=== PATIENT | female | born 1995 | race Caucasian/White ===

== ENCOUNTER 2020-12-08 20:57 | Emergency (ER) | payer BC, OTHER ==
[2020-12-08 21:42] LABS: Protime INR 1.12
[2020-12-08 21:43] LABS: Absolute Lymphocytes (CBC) 4.5 K/uL (0.7-4.9); Basophils % 0.7 % (0-1.3); Lymphocytes % 38.6 % (15.3-44.8); MPV 7.7 fL (7.6-11.3); RBC Red Blood Cell Count 5.37 M/uL (3.86-4.86)
[2020-12-08 21:43] LABS: Urine Blood Negative (Negative); Urine Glucose Negative (Negative); Urine Protein Negative (Negative)
[2020-12-08 22:00] LABS: ALT/SGPT 21 U/L (12-78); AST/SGOT 12 U/L (15-37); Albumin 4.2 g/dL (3.4-5.0); Alkaline Phosphatase 83 U/L (45-117); BUN Blood Urea Nitrogen 12 mg/dL (7-18); Bicarbonate 30 mmol/L (21-32); Bilirubin Direct 0.1 mg/dL (0-0.2); Bilirubin Total 0.4 mg/dL (0.2-1.0); Glucose Level 95 mg/dL (74-106); Magnesium 2.5 mg/dL (1.8-2.4); NT PRO-BNP 23 pg/mL (<125); Potassium 3.7 mmol/L (3.5-5.1); Sodium Level 142 mmol/L (136-145); Troponin (Emerg Dept Use Only) < 0.02 ng/mL (0.0-0.045)
--- NOTE | 2020-12-08 23:26 | EDPHYS ---
Physician Documentation [facility] Name: Leonora Esteban Age: 25 yrs Sex: Female : 1995 Arrival Date: 12/08/2020 Time: 21:01 Bed 6 Private MD: ED Physician Kin Lambert HPI: 12/08 21:58 This 25 yrs old Female presents to ER via Ambulatory with complaints of Chest jmm Pain, Weakness, Palpitations. 21:58 The patient or guardian reports chest pain that is located primarily in the substernal jmm area. The pain radiates to across chest. Associated signs and symptoms: Pertinent negatives: abdominal pain, shortness of breath. The chest pain is described as sharp. Duration: The patient or guardian reports multiple episodes, that are intermittent, that wax and wane. Modifying factors: The symptoms are alleviated by nothing. the symptoms are aggravated by nothing. The patient has not experienced similar symptoms in the past. 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 - Social history:: Smoking status: Patient denies any tobacco usage or history of. ROS: 21:58 Constitutional: Negative for fever, chills, and weight loss, Respiratory: Negative for jmm shortness of breath, cough, wheezing, and pleuritic chest pain. 21:58 Cardiovascular: Positive for chest pain. 21:58 All other systems are negative. Exam: 21:58 Constitutional: This is a well developed, well nourished patient who is awake, alert, jmm and in no acute distress. Head/Face: atraumatic. Eyes: EOMI, no conjunctival erythema appreciated ENT: Moist Mucus Membranes Neck: Trachea midline, Supple Chest/axilla: Normal chest wall appearance and motion. Cardiovascular: Regular rate and rhythm. No edema appreciated Respiratory: Normal respirations, no respiratory distress appreciated Abdomen/GI: Non distended, soft Back: Normal ROM Skin: General appearance color normal MS/ Extremity: Moves all extremities, no obvious deformities appreciated, no edema noted to the lower extremities Neuro: Awake and alert, normal gait Vital Signs: 21:08 BP 140 / 98; Pulse 91; Resp 18; Temp 98.2; Pulse Ox 99% on R/A; Weight 77.11 kg; Height em 5 ft. 6 in. (167.64 cm); Pain 7/10; 22:35 BP 115 / 84; Pulse 82; Resp 18; Pulse Ox 99% on R/A; ms4 23:26 BP 117 / 76; Pulse 86; Resp 18; Pulse Ox 100% on R/A; Pain 0/10; ms4 21:08 Body Mass Index 27.44 (77.11 kg, 167.64 cm) em MDM: 21:23 Patient medically screened. [facility] 23:24 Data reviewed: vital signs, nurses notes. Counseling: I had a detailed discussion with murali the patient and/or guardian regarding: the historical points, exam findings, and any diagnostic results supporting the discharge/admit diagnosis, radiology results, the need for outpatient follow up, to return to the emergency department if symptoms worsen or persist or if there are any questions or concerns that arise at home. ED course: HEART score = 1. Advised to follow up with pcp and otherwise given strict return precautions. Patient understood and agrees with the plan of care. . 12/08 21:26 Order name: Basic Metabolic Panel ms4 12/08 21: Order name: CBC with Diff; Complete Time: 21:45 ms4 12/08 21:26 Order name: LFT's; Complete Time: 22:01 ms4 12/08 21:26 Order name: Magnesium; Complete Time: 22:01 ms4 12/08 21:26 Order name: NT PRO-BNP; Complete Time: 22:01 ms4 12/08 21: Order name: PT-INR; Complete Time: 23:13 ms4 12/08 21: Order name: Troponin (emerg Dept Use Only); Complete Time: 22:01 ms4 12/08 21:26 Order name: XRAY Chest (1 view) ms4 12/08 21: Order name: Basic Metabolic Panel; Complete Time: 22:01 EDMS 12/08 21:43 Order name: Urine Dipstick-Ancillary; Complete Time: 21:45 EDMS 12/08 21:43 Order name: Urine --Ancillary (enter results) ms4 12/08 21:44 Order name: Urine --Ancillary; Complete Time: 22:13 EDMS 12/08 22:55 Order name: D-Dimer; Complete Time: 23:13 EDMS 12/08 21:26 Order name: EKG; Complete Time: 21:27 ms4 12/08 21:26 Order name: Cardiac monitoring; Complete Time: 21:26 ms4 12/08 21:26 Order name: EKG - Nurse/Tech; Complete Time: 21:26 ms4 12/08 21:26 Order name: IV Saline Lock; Complete Time: 21:26 ms4 12/08 21:26 Order name: Labs collected and sent; Complete Time: 21:26 ms4 12/08 21:26 Order name: O2 Per Protocol; Complete Time: 21:26 ms4 12/08 21:26 Order name: O2 Sat Monitoring; Complete Time: 21:26 ms4 12/08 21:29 Order name: Urine Dipstick-Ancillary (obtain specimen); Complete Time: 21:43 [facility] 12/08 21:29 Order name: Urine Test (obtain specimen); Complete Time: 21:43 [facility] Administered Medications: No medications were administered Disposition: 12/09 05:42 Co-signature as Attending Physician, Kin Lambert MD. [facility] Disposition Summary: 12/08/20 23:25 Discharge Ordered Location: Home [facility] Condition: Stable jm Diagnosis - Chest pain, unspecified jmm Followup: jm - With: Private Physician - When: 2 - 3 days - Reason: Recheck today's complaints, Continuance of care, Re-evaluation by your physician Followup: [facility] - With: Luis Elizondo MD - When: 2 - 3 days - Reason: Recheck today's complaints, Continuance of care, Re-evaluation by your physician Discharge Instructions: - Discharge Summary Sheet jm - Nonspecific Chest Pain, Adult jm Forms: - Medication Reconciliation Form [facility] - Thank You Letter [facility] - Antibiotic Education [facility] - Prescription Opioid Use [facility] Signatures: Dispatcher [employer] EDMS Chaim Sotomayor PA PA m Live Hay, RN RN Kin De Jesus MD MD 7 La Amado RN RN ms4 Corrections: (The following items were deleted from the chart) 12/08 21:10 Allergies: No Known Allergies; em em 21:10 Allergies: Bystolic; em em : 21:30 D-DIMER+COAG.LAB.HYUN ordered. EDMS EDMS
--- NOTE | 2020-12-08 23:26 | ER ---
Nurse's Notes [facility] Name: Leonora Esteban Age: 25 yrs Sex: Female : 1995 Arrival Date: 12/08/2020 Time: 21:01 Bed 6 Private MD: Diagnosis: Chest pain, unspecified Presentation: 12/08 21:08 Chief complaint: Patient states: chest pain that started a few days ago, but today was em worse, reports palpitations and pain under left ribs, reports nausea, hx of anxiety. Coronavirus screen: Vaccine status: Patient reports being unvaccinated. Ebola Screen: Patient negative for fever greater than or equal to 101.5 degrees Fahrenheit, and additional compatible Ebola Virus Disease symptoms Patient denies exposure to infectious person. Patient denies travel to an Ebola-affected area in the 21 days before illness onset. No symptoms or risks identified at this time. Initial Sepsis Screen: Does the patient meet any 2 criteria? No. Patient's initial sepsis screen is negative. Does the patient have a suspected source of infection? No. Patient's initial sepsis screen is negative. Risk Assessment: Do you want to hurt yourself or someone else? Patient reports no desire to harm self or others. Onset of symptoms was December 08, 2020. 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 - Social history:: Smoking status: Patient denies any tobacco usage or history of. Screenin:27 Abuse screen: Denies threats or abuse. Denies injuries from another. Nutritional ms4 screening: No deficits noted. Tuberculosis screening: No symptoms or risk factors identified. Fall Risk None identified. Assessment: 21:27 General: Appears in no apparent distress. Behavior is anxious. Pain: Complains of pain ms4 in chest Pain radiates to LUQ Quality of pain is described as sharp, Pain began 2-3 days ago. Neuro: No deficits noted. Cardiovascular: Reports chest pain, palpitations, Capillary refill < 3 seconds Chest pain. Respiratory: No deficits noted. Vital Signs: 21:08 BP 140 / 98; Pulse 91; Resp 18; Temp 98.2; Pulse Ox 99% on R/A; Weight 77.11 kg; Height em 5 ft. 6 in. (167.64 cm); Pain 7/10; 22:35 BP 115 / 84; Pulse 82; Resp 18; Pulse Ox 99% on R/A; ms4 23:26 BP 117 / 76; Pulse 86; Resp 18; Pulse Ox 100% on R/A; Pain 0/10; ms4 21:08 Body Mass Index 27.44 (77.11 kg, 167.64 cm) em ED Course: 21:01 Patient arrived in ED. cf2 21:03 Chaim Sotomayor PA is PHCP. jmm 21:03 Kin Lambert MD is Attending Physician. jmm 21:10 Triage completed. em 21:10 Arm band placed on. em 21:27 No provider procedures requiring assistance completed. Inserted saline lock: 20 gauge ms4 in left antecubital area, using aseptic technique. Blood collected. Patient maintains SpO2 saturation greater than 95% on room air. 21:30 PT-INR Sent. ms4 21:31 NT PRO-BNP Sent. ms4 21:31 Magnesium Sent. ms4 21:31 LFT's Sent. ms4 21:31 CBC with Diff Sent. ms4 21:31 Basic Metabolic Panel Sent. ms4 21:31 Basic Metabolic Panel Sent. ms4 22:18 XRAY Chest (1 view) In Process Unspecified. EDMS 23:26 Luis Elizondo MD is Referral Physician. jmm 23:39 IV discontinued, intact, bleeding controlled. ms4 23:40 terminal operator on. Pulse ox on. NIBP on. ms4 23:40 Patient has correct armband on for positive identification. ms4 Administered Medications: No medications were administered Outcome: 23:25 Discharge ordered by . jmm 23:39 Discharged to home ambulatory. ms4 23:39 Condition: stable 23:39 Discharge instructions given to patient, Instructed on discharge instructions, follow up and referral plans. Demonstrated understanding of instructions, follow-up care. 23:40 Patient left the ED. ms4 Signatures: Dispatcher [employer] EDMS Chaim Sotomayor PA PA jmm Hay, Live, RN RN em Juana Simpson cf2 La Amado RN RN ms4 Corrections: (The following items were deleted from the chart) 21:10 Allergies: No Known Allergies; em em 21:10 Allergies: Bystolic; em em 22:54 21:31 D-DIMER+COAG.LAB.BRZ drawn and sent. ms4 EDMS
[2020-12-08 23:51] VITALS: TEMP 98.2
[2020-12-08 23:53] VITALS: BP 117/76; O2SAT 100
--- NOTE | 2020-12-09 08:36 | RAD REPORT ---
EXAM DESCRIPTION: RAD - Chest Single View - 12/08/2020 10:18 pm CLINICAL HISTORY: CHEST PAIN Chest pain. COMPARISON: No comparisons FINDINGS: Portable technique limits examination quality. Subtle opacity in the left lung base is noted probably representing pulmonary infection. The lungs ar e otherwise clear. The heart is normal in size. No displaced fractures.
== END 2020-12-08 23:40 | disposition home or self-care (01) ==
LOC: ER 20:57
DX: R07.9 Chest pain, unspecified (principal)
CPT/HCPCS: 36415; 71045; 80048; 80076; 81003; 81025; 83735; 83880; 84484; 85025; 85379; 85610; 93005; 99285